=== PATIENT | female | born 1970 | race American Indian/Alaskan Native ===

== ENCOUNTER 2017-11-22 10:09 | Emergency (ER) | payer SELFPAY ==
[2017-11-22 10:46] VITALS: BP 144/104
[2017-11-22] MEDS ORDERED: MOTRIN PO ONE (13:23)
[2017-11-22] MEDS ORDERED: TYLENOL PO ONE (13:23)
--- NOTE | 2017-11-22 13:24 | Emergency Department Report ---
- General Chief Complaint: Upper Respiratory Infection Stated Complaint: COLD/COUGHING Time Seen by Provider: 11/22/17 13:11 Source: patient, RN notes reviewed Mode of arrival: Ambulatory Limitations: No Limitations - History of Present Illness Initial Comments: This is a 47-year-old female who was previously unknown to this provider, she does not have a primary care doctor and she reports that she is not . Presents to the ER with one week of cold, cough, mucus production, body aches," I feel like I have the flu." Symptoms constant, they do not radiate anywhere, and they will have any exacerbating or relieving factors. MD Complaint: cough, sore throat, rhinorrhea, nasal congestion -: Gradual, days(s) (7) Severity: moderate Consistency: constant Improves With: nothing Worsens With: nothing Context: sick contacts Associated Symptoms: myalgias, headache, rhinorrhea, nasal congestion, sore throat, cough, hoarseness. denies: fever, chills, stiff neck, chest pain, shortness of breath, abdominal pain, nausea, vomiting, diarrhea, dysuria, confusion, right sweats, weight loss, epistaxis, ear pain Treatments Prior to Arrival: "cold medicine" - Related Data Previous Rx's Medication Instructions Recorded Last Taken Type Famotidine [Pepcid] 20 mg PO BID #40 tablet 10/21/15 Unknown Rx Hyoscyamine Subl [Levsin Sl 0.125 0.125 mg SL Q6HR PRN #20 tab 10/21/15 Unknown Rx TAB] Promethazine [Phenergan TAB] 25 mg PO Q6HR PRN #20 tab 10/21/15 Unknown Rx Brompheniramine/Pseudoephed/Dm 10 ml PO Q6HR PRN #120 syrup 12/10/15 Unknown Rx [Bromfed Dm Cough Syrup] Ibuprofen [Motrin 800 MG tab] 800 mg PO Q8HR PRN #30 tablet 12/10/15 Unknown Rx Acetaminophen [Tylenol Arthritis] 650 mg PO Q6HR PRN #30 tablet.er 11/22/17 Unknown Rx Albuterol Sulfate [Proair 90 mcg IH Q4HR PRN #2 aer.pow.ba 11/22/17 Unknown Rx Respiclick] Azithromycin [Zithromax TAB] 250 mg PO QDAY #4 tablet 01/20/18 Unknown Rx Benzonatate [Tessalon Perles] 100 mg PO Q8HR PRN #30 capsule 11/22/17 Unknown Rx Fluticasone [Flonase] 1 spray NS QDAY #1 bottle 11/22/17 Unknown Rx Ibuprofen [Motrin] 600 mg PO Q8H PRN #30 tablet 11/22/17 Unknown Rx Allergies Allergy/AdvReac Type Severity Reaction Status Date / Time Penicillins Allergy Unknown Verified 10/21/15 09:22 codeine AdvReac Nausea Verified 10/21/15 09:22 ED Review of Systems ROS: Stated complaint: COLD/COUGHING Other details as noted in HPI ED Past Medical Hx - Past Medical History Previous Medical History?: Yes Additional medical history: ulcer - Surgical History Past Surgical History?: No - Social History Smoking Status: Former Smoker Substance Use Type: Alcohol, Marijuana, Non Opiate Pain, Other - Medications Home Medications: Home Medications Medication Instructions Recorded Confirmed Last Taken Type Famotidine [Pepcid] 20 mg PO BID #40 tablet 10/21/15 Unknown Rx Hyoscyamine Subl [Levsin Sl 0.125 0.125 mg SL Q6HR PRN #20 tab 10/21/15 Unknown Rx TAB] Promethazine [Phenergan TAB] 25 mg PO Q6HR PRN #20 tab 10/21/15 Unknown Rx Brompheniramine/Pseudoephed/Dm 10 ml PO Q6HR PRN #120 syrup 12/10/15 Unknown Rx [Bromfed Dm Cough Syrup] Ibuprofen [Motrin 800 MG tab] 800 mg PO Q8HR PRN #30 tablet 12/10/15 Unknown Rx Acetaminophen [Tylenol Arthritis] 650 mg PO Q6HR PRN #30 tablet.er 11/22/17 Unknown Rx Albuterol Sulfate [Proair 90 mcg IH Q4HR PRN #2 aer.pow.ba 11/22/17 Unknown Rx Respiclick] Azithromycin [Zithromax TAB] 250 mg PO QDAY #4 tablet 11/22/17 Unknown Rx Benzonatate [Tessalon Perles] 100 mg PO Q8HR PRN #30 capsule 11/22/17 Unknown Rx Fluticasone [Flonase] 1 spray NS QDAY #1 bottle 11/22/17 Unknown Rx Ibuprofen [Motrin] 600 mg PO Q8H PRN #30 tablet 11/22/17 Unknown Rx ED Physical Exam - General Limitations: No Limitations General appearance: alert, in no apparent distress - Head Head exam: Present: atraumatic, normocephalic - Eye Eye exam: Present: normal appearance, PERRL, EOMI. Absent: nystagmus - ENT ENT exam: Present: normal exam, normal orophraynx, mucous membranes moist, TM's normal bilaterally, normal external ear exam - Neck Neck exam: Present: normal inspection, full ROM. Absent: tenderness, meningismus, lymphadenopathy - Respiratory Respiratory exam: Present: normal lung sounds bilaterally, other (left-sided breast exam is unremarkable and nontender. There is no redness, pus or streaking. There is no erythema. During the breast examination, escorted by nursing Mey Ferreira). Absent: respiratory distress, wheezes, rales, rhonchi , stridor, chest wall tenderness - Cardiovascular Cardiovascular Exam: Present: regular rate, normal rhythm, normal heart sounds. Absent: systolic murmur, diastolic murmur, rubs, gallop - GI/Abdominal GI/Abdominal exam: Present: soft, normal bowel sounds. Absent: distended, tenderness, guarding, rebound, rigid, pulsatile mass - Extremities Exam Extremities exam: Present: normal inspection, full ROM. Absent: tenderness, pedal edema, calf tenderness - Back Exam Back exam: Present: normal inspection, full ROM. Absent: tenderness, CVA tenderness (R), paraspinal tenderness, vertebral tenderness - Neurological Exam Neurological exam: Present: alert, oriented X3, CN II-XII intact, normal gait, other (Extraocular movements intact. Tongue midline. No facial droop. Facial sensation intact to light touch in the V1, V2, V3 distribution bilaterally. 5 and 5 strength in 4 extremities.. Sensation is intact to light touch in 4 extremities.). Absent: motor sensory deficit - Psychiatric Psychiatric exam: Present: normal affect, normal mood - Skin Skin exam: Present: warm, dry, intact, normal color. Absent: rash ED Course Vital Signs 11/22/17 11/22/17 10:43 13:33 Temperature 97.8 F Pulse Rate 86 Respiratory 20 20 Rate Blood Pressure 144/104 O2 Sat by Pulse 96 Oximetry ED Medical Decision Making - Lab Data Vital Signs 11/22/17 11/22/17 10:43 13:33 Temperature 97.8 F Pulse Rate 86 Respiratory 20 20 Rate Blood Pressure 144/104 O2 Sat by Pulse 96 Oximetry - Radiology Data Radiology results: pending, image reviewed interpreted by me: X-ray of the chest, interpreted by myself: Right lower lobe pneumonia. - Medical Decision Making Differential diagnosis, including not limited to: Viral syndrome, influenza- like illness, bronchitis, pneumonia Assessment and plan: 49-year-old female with bronchitis and probable influenza- like illness. Influenza screen is negative, symptoms present for 7 days, does not have cardiovascular or pulmonary disease, therefore no benefits to initiating antiviral therapy at this time. X-ray of the chest shows right lower lobe pneumonia, physical exam unremarkable, no wheezing noted, saturating well, patient given appropriate anticipatory guidance, she is counseled to expect symptoms to last for a few days to a few weeks. Patient will be treated empirically with azithromycin. She is suitable for outpatient therapy at this time. Critical care attestation.: If time is entered above; I have spent that time in minutes in the direct care of this critically ill patient, excluding procedure time. ED Disposition Clinical Impression: Bronchitis Disposition: [id number] TO HOME OR SELFCARE Is pt being admited?: No Does the pt Need Aspirin: No Condition: Stable Instructions: Chronic Bronchitis (ED), Viral Syndrome (ED) Additional Instructions: Take medications as directed. Follow up with a primary care doctor within the next 2-3 weeks. Symptoms of bronchitis typically last 4-6 weeks. Therefore, symptoms will likely last for the next few weeks. Avoid exposure to smoke and tobacco. Return to the ER right away with new pain, worsened pain, migration of pain, intractable nausea or vomiting, confusion, fevers, chills, inability to tolerate liquid feeds, new, worsening or different symptoms. Prescriptions: Acetaminophen [Tylenol Arthritis] 650 mg PO Q6HR PRN #30 tablet.er PRN Reason: Pain Albuterol Sulfate [Proair Respiclick] 90 mcg IH Q4HR PRN #2 aer.pow.ba PRN Reason: Wheezing Azithromycin [Zithromax TAB] 250 mg PO QDAY #4 tablet Benzonatate [Tessalon Perles] 100 mg PO Q8HR PRN #30 capsule PRN Reason: Cough Fluticasone [Flonase] 1 spray NS QDAY #1 bottle Ibuprofen [Motrin] 600 mg PO Q8H PRN #30 tablet PRN Reason: Pain Referrals: PRIMARY CARE, [Primary Care Provider] - 3-5 Days MERLE CARRILLO MD [Staff Physician] - 3-5 Days [facility] [Provider Group] - 3-5 Days
[2017-11-22] MEDS ORDERED: ZITHROMAX PO ONE (14:20)
--- NOTE | 2017-11-22 16:04 | XRay Report ---
FINAL REPORT EXAM: XR CHEST ROUTINE 2V HISTORY: cough TECHNIQUE: PA and lateral views of the chest PRIORS: None. FINDINGS: Lines, tubes, and devices: N/A Lungs and pleura: Trachea is normal in position. Patchy alveolar infiltrate in the right middle lobe is noted suspicious for pneumonia. This should be followed to radiographic resolution. Left lung is clear of infiltrate, pleural effusion, vascular congestion, or pneumothorax. No change. Cardiomediastinal silhouette: Cardiac and mediastinal silhouettes are unremarkable. Other: Bony structures are intact. IMPRESSION: Alveolar infiltrate in the right middle lobe suspicious for pneumonia. This should be followed to radiographic resolution.
== END 2017-11-22 14:28 | disposition home or self-care (01) ==
LOC: ED 10:09
DX: J40 Bronchitis, not specified as acute or chronic (principal); Z87.891 Personal history of nicotine dependence; F12.10 Cannabis abuse, uncomplicated; Z88.6 Allergy status to analgesic agent; Z88.0 Allergy status to penicillin
CPT/HCPCS: 71046; 87400; 99283